=== PATIENT | female | born 1985 | race Caucasian/White ===

== ENCOUNTER 2018-01-02 20:59 | Emergency (ER) | payer SELFPAY ==
[2018-01-02] MEDS ORDERED: Adacel Vial IM ONE ×2 (21:31→21:50)
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
[2018-01-02] MEDS ORDERED: TYLENOL 325 MG PO STA (21:37)
[2018-01-02] MEDS ORDERED: MOTRIN 400 MG PO ONE (21:38)
[2018-01-02] MEDS ORDERED: MOTRIN 400 MG ONE (21:50)
[2018-01-02] MEDS ORDERED: TYLENOL 325 MG ONE (21:50)
[2018-01-02 22:18] VITALS: BP 125/95; PULSE 119
[2018-01-02 23:04] VITALS: O2SAT 100
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
== END 2018-01-02 23:19 | disposition home or self-care (01) ==
LOC: ED 20:59
DX: S00.83XA Contusion of other part of head, initial encounter (principal); S01.511A Laceration without foreign body of lip, initial encounter; Y04.2XXA Assault by strike against or bumped into by another person, initial encounter
CPT/HCPCS: 70450; 70486; 90471; 90715; 99284; A9270-GY

== ENCOUNTER 2018-02-10 11:00 | Emergency (ER) | payer SELFPAY ==
[2018-02-10] MEDS ORDERED: Sodium Chloride 0.9% 1000 ML 1,000 ML IV STA (11:26)
[2018-02-10] MEDS ORDERED: Transderm Scop 1.5MG Patch TOP ONE (11:30)
[2018-02-10] MEDS ORDERED: Sodium Chloride 0.9% 1000 ML 1,000 ML ONE ×3 (11:32→14:10)
[2018-02-10 11:44] LABS: Lactic Acid 7.1 (0.4-2.0)
--- NOTE | 2018-02-10 11:45 | ERPHSYRPT ---
- History of Present Illness Historian: patient Exam Limitations: no limitations Patient Subjective Stated Complaint: vomiting since approx 0500 and has done so approx 30 times Triage Nursing Assessment: Pt c/o of vomiting approx 30 times since 0500, denies abdominal pain and no pain with palpatation, reported getting drunk last night and finished approx 0030 but was never sick, hx of alcoholic pancreatitis , denies any other issues at this time Physician History: Pt is a 32 y/o female, that presented to the ER, secondry to frequent vomiting episodes, since 5:00am. Pt states, could not hold any fluids or food intake. Pt denies abdominal pain or diarrhea. No F/C/S. Pt states, had a few alchoholic drinks yesterday. Last time she smoked pot was a few days ago. Pt denies any other recreational drug use. No SOB or cough, no chest pain. Timing/Duration: today Activities at Onset: none Severity of Pain-Max: none Severity of Pain-Current: none Modifying Factors: Improves With: nothing Associated Symptoms: nausea (Severe vomiting) Allergies/Adverse Reactions: No Known Drug Allergies Allergy (Verified 02/10/18 11:17) Home Medications: No Reportable Medications [No Reported Medications] 02/10/18 [History] Hx Tetanus, Diphtheria Vaccination/Date Given: No Hx Influenza Vaccination/Date Given: No Hx Pneumococcal Vaccination/Date Given: No - Review of Systems Constitutional: Malaise, Weakness Eyes: No Symptoms Ears, Nose, & Throat: No Symptoms Respiratory: No Cough, No Dyspnea Cardiac: Palpitations Abdominal/Gastrointestinal: Nausea, Vomiting Genitourinary Symptoms: Other (Decrease urine output) Musculoskeletal: No Back Pain, No Neck Pain Skin: No Rash Neurological: No Dizziness, No Focal Weakness, No Sensory Changes Psychological: No Symptoms Endocrine: No Symptoms All Other Systems: Reviewed and Negative - Past Medical History Pertinent Past Medical History: Yes Neurological History: No Pertinent History ENT History: No Pertinent History Cardiac History: No Pertinent History Respiratory History: No Pertinent History Endocrine Medical History: Other Musculoskeletal History: Fibromyalgia GI Medical History: No Pertinent History History: No Pertinent History Psycho-Social History: Anxiety, Depression Female Reproductive Disorders: No Pertinent History Other Medical History: alcoholism pancreatitis - Past Surgical History Past Surgical History: Yes Neuro Surgical History: No Pertinent History Cardiac: No Pertinent History Respiratory: No Pertinent History Gastrointestinal: No Pertinent History Genitourinary: No Pertinent History Musculoskeletal: No Pertinent History Female Surgical History: No Pertinent History, Tubal Ligation, Other Other Surgical History: varicose veins, cyst removal - Social History Smoking Status: Current every day smoker How long have you smoked: 15 years Exposure to second hand smoke: Yes Drug Use: marijuana Patient Lives Alone: No - Female History Hx Last Menstrual Period: 01/25/2018 Hx Now: No (tubal) - Nursing Vital Signs Nursing Vital Signs: Initial Vital Signs Temperature 98.3 F 02/10/18 11:04 Pulse Rate 140 H 02/10/18 11:04 Blood Pressure 147/107 02/10/18 11:04 O2 Sat by Pulse Oximetry 97 02/10/18 11:04 Pain Scale Pain Intensity 2 - Physical Exam General Appearance: moderate distress Eye Exam: PERRL/EOMI, eyes nml inspection Ears, Nose, Throat Exam: normal ENT inspection, pharynx normal, moist mucous membranes Neck Exam: normal inspection, non-tender, supple, full range of motion Respiratory Exam: normal breath sounds, lungs clear, No respiratory distress Cardiovascular Exam: tachycardia Gastrointestinal/Abdomen Exam: soft, No tenderness, No mass Back Exam: normal inspection, normal range of motion, No CVA tenderness, No vertebral tenderness Extremity Exam: normal inspection, normal range of motion, pelvis stable Neurologic Exam: alert, oriented x 3, cooperative, normal mood/affect, nml cerebellar function, sensation nml, other (Tremors), No motor deficits Skin Exam: normal color, warm, dry SpO2: 97 Oxygen Delivery: Room Air - Radiology Exams Abdomen X-ray Interpretation: Reviewed by me (Negative KUB) Ordered Tests: Active Orders 24 hr Category Date Time Status Clean Catch Urine Specimen STAT Care 02/10/18 14:56 Active IV Insertion STAT Care 02/10/18 11:26 Active NPO (ED) STAT Care 02/10/18 11:26 Active KUB Stat Exams 02/10/18 11:28 Completed AMYLASE Stat Lab 02/10/18 11:45 Completed BLOOD CULTURE Stat Lab 02/10/18 12:07 Received CBC W DIFF Stat Lab 02/10/18 11:45 Completed CMP Stat Lab 02/10/18 11:45 Completed HCG QUALITATIVE,SERUM Stat Lab 02/10/18 11:45 Completed LIPASE Stat Lab 02/10/18 11:45 Completed Lactic Acid Stat Lab 02/10/18 11:35 Completed Lactic Acid Stat Lab 02/10/18 13:58 Completed Urine Triage Profile Stat Lab 02/10/18 15:00 Completed Medication Summary Generic Name Dose Route Start Last Admin Trade Name Petra PRN Reason Stop Dose Admin Sodium Chloride 1,000 mls @ 999 mls/hr 02/10/18 12:00 02/10/18 16:05 Sodium Chloride 0.9% 1000 Ml IV 02/10/18 15:00 Infused .Q1H1M FRAN Infusion Discontinued Medications Generic Name Dose Route Start Last Admin Trade Name Petra PRN Reason Stop Dose Admin Famotidine 40 mg 02/10/18 13:20 02/10/18 14:26 Pepcid 20 Mg Vial IV 02/10/18 13:21 40 mg STAT ONE Administration Famotidine Confirm 02/10/18 13:55 Pepcid 20 Mg Vial Administered 02/10/18 13:56 Dose 40 mg IV .STK-MED ONE Sodium Chloride 1,000 mls @ 999 mls/hr 02/10/18 11:26 02/10/18 14:27 Sodium Chloride 0.9% 1000 Ml IV 02/10/18 12:26 Infused .Q1H1M STA Infusion Sodium Chloride Confirm 02/10/18 11:32 Sodium Chloride 0.9% 1000 Ml Administered 02/10/18 11:33 Dose 1,000 mls @ ud .ROUTE .STK-MED ONE Sodium Chloride Confirm 02/10/18 11:51 Sodium Chloride 0.9% 1000 Ml Administered 02/10/18 11:52 Dose 1,000 mls @ ud .ROUTE .STK-MED ONE Vancomycin HCl 250 mls @ 167 mls/hr 02/10/18 11:54 02/10/18 12:24 Vancomycin 1gm/ Ns 250ml IV 02/10/18 13:23 167 mls/hr STAT ONE Administration Piperacillin Sod/Tazobactam Sod 3.375 gm in 100 mls @ 200 mls/hr 02/10/18 11: 54 02/10/18 12:36 Zosyn 3.375gm/100 Ml D5w IV 02/10/18 12:23 Infused STAT STA Infusion Piperacillin Sod/Tazobactam Sod Confirm 02/10/18 11:59 Zosyn 3.375gm/100 Ml D5w Administered 02/10/18 12:00 Dose 3.375 gm in 100 mls @ ud IV .STK-MED ONE Vancomycin HCl Confirm 02/10/18 12:23 Vancomycin 1gm/ Ns 250ml Administered 02/10/18 12:24 Dose 250 mls @ ud IV .STK-MED ONE Scopolamine HBr 1.5 mg 02/10/18 11:30 02/10/18 11:49 Transderm Scop 1.5mg Patch TOP 02/10/18 11:31 1.5 mg STAT ONE Administration Lab/Rad Data: Laboratory Result Diagrams 02/10/18 11:45 02/10/18 11:45 Laboratory Results 02/10/18 02/10/18 02/10/18 Range/Units 15:00 13:58 11:45 WBC (4.0-10.5) K/mm3 RBC (4.1-5.4) M/mm3 Hgb (12.0-16.0) gm/dl Hct (35-47) % MCV (78-100) fl MCH (26-32) pg MCHC (32-36) g/dl RDW (11.5-14.0) % Plt Count (150-450) K/mm3 MPV (6-9.5) fl Gran % (36.0-66.0) % Eos # (Auto) (0-0.5) Absolute Lymphs (auto) (1.0-4.6) Absolute Monos (auto) (0.0-1.3) Lymphocytes % (24.0-44.0) % Monocytes % (0.0-12.0) % Eosinophils % (0.00-5.0) % Basophils % (0.0-0.4) % Absolute Granulocytes (1.4-6.9) Basophils # (0-0.4) Sodium (137-145) mmol/L Potassium (3.5-5.1) mmol/L Chloride (98-107) mmol/L Carbon Dioxide (22-30) mmol/L Anion Gap (5-15) MEQ/L BUN (7-17) mg/dL Creatinine (0.52-1.04) mg/dL Estimated GFR ML/MIN Glucose (74-106) mg/dL Lactic Acid 1.6 (0.4-2.0) Calcium (8.4-10.2) mg/dL Total Bilirubin (0.2-1.3) mg/dL AST (14-36) U/L ALT (0-35) U/L Alkaline Phosphatase (38-126) U/L Serum Total Protein (6.3-8.2) g/dL Albumin (3.5-5.0) g/dL Amylase (30-110) U/L Lipase (23-300) U/L Serum , Qual NEGATIVE (Negative) Urine Opiates Level NEGATIVE (NEGATIVE) Ur Methadone NEGATIVE (NEGATIVE) Urine Barbiturates NEGATIVE (NEGATIVE) Ur Phencyclidine (PCP) NEGATIVE (NEGATIVE) Urine Amphetamine NEGATIVE (NEGATIVE) U Benzodiazepine Level NEGATIVE (NEGATIVE) Urine Cocaine NEGATIVE (NEGATIVE) Urine Marijuana (THC) POSITIVE (NEGATIVE) 02/10/18 02/10/18 02/10/18 Range/Units 11:45 11:45 11:35 WBC 11.4 H (4.0-10.5) K/mm3 RBC 4.56 (4.1-5.4) M/mm3 Hgb 15.4 (12.0-16.0) gm/dl Hct 44.1 (35-47) % MCV 96.7 (78-100) fl MCH 33.8 H (26-32) pg MCHC 34.9 (32-36) g/dl RDW 14.1 H (11.5-14.0) % Plt Count 257 (150-450) K/mm3 MPV 9.7 H (6-9.5) fl Gran % 76.1 H (36.0-66.0) % Eos # (Auto) 0.02 (0-0.5) Absolute Lymphs (auto) 1.75 (1.0-4.6) Absolute Monos (auto) 0.88 (0.0-1.3) Lymphocytes % 15.4 L (24.0-44.0) % Monocytes % 7.7 (0.0-12.0) % Eosinophils % 0.2 (0.00-5.0) % Basophils % 0.6 (0.0-0.4) % Absolute Granulocytes 8.68 H (1.4-6.9) Basophils # 0.07 (0-0.4) Sodium 137 (137-145) mmol/L Potassium 3.3 L (3.5-5.1) mmol/L Chloride 97 L (98-107) mmol/L Carbon Dioxide 17 L (22-30) mmol/L Anion Gap 26.1 H (5-15) MEQ/L BUN 8 (7-17) mg/dL Creatinine 0.71 (0.52-1.04) mg/dL Estimated GFR > 60.0 ML/MIN Glucose 95 (74-106) mg/dL Lactic Acid 7.1 H (0.4-2.0) Calcium 9.8 (8.4-10.2) mg/dL Total Bilirubin 1.30 (0.2-1.3) mg/dL AST 77 H (14-36) U/L ALT 56 H (0-35) U/L Alkaline Phosphatase 85 (38-126) U/L Serum Total Protein 8.1 (6.3-8.2) g/dL Albumin 5.1 H (3.5-5.0) g/dL Amylase 92 (30-110) U/L Lipase 82 (23-300) U/L Serum , Qual (Negative) Urine Opiates Level (NEGATIVE) Ur Methadone (NEGATIVE) Urine Barbiturates (NEGATIVE) Ur Phencyclidine (PCP) (NEGATIVE) Urine Amphetamine (NEGATIVE) U Benzodiazepine Level (NEGATIVE) Urine Cocaine (NEGATIVE) Urine Marijuana (THC) (NEGATIVE) - Progress Progress: improved Progress Note: 02/10/18 16:44 Pt was given 3 lit of IVF, and ABX, Zosyn and Azithromycin was given, secondary to elevated Lactic acid. Repeat lactate was 1.6, and pt felt much better. She was able to have a bottle of water, and applesauce with no vomiting. Pt was educated about cyclic vomiting syndrome, and she was cleared for d/c. I explained to the pt that she should stop smoking pot and drinking ETOH, secondaary to the effect those have on her. Pt should f/u with her PCP. Will see patient in: office Counseled pt/family regarding: drug and/or alcohol abuse, lab results, diagnosis - Departure Time of Disposition: 16:49 Departure Disposition: Home Clinical Impression: Cyclic vomiting syndrome Condition: Stable Critical Care Time: No Referrals: DOCTOR,NO FAMILY [Primary Care Provider] -
[2018-02-10 11:47] LABS: BASOPHIL % 0.6 % (0.0-0.4); Basophil (Absolute #) 0.07 (0-0.4); Eosinophil % 0.2 % (0.00-5.0); Eosinophil (Absolute #) 0.02 (0-0.5); Granulocyte Absolute (ANC) 8.68 (1.4-6.9); Granulocytes % 76.1 % (36.0-66.0); Hematocrit 44.1 % (35-47); Hemoglobin 15.4 gm/dl (12.0-16.0); Lymphocyte (Absolute #) 1.75 (1.0-4.6); Lymphocytes % 15.4 % (24.0-44.0); Mean Cell Volume 96.7 fl (78-100); Mean Corpuscular Hemoglobin 33.8 pg (26-32); Mean Corpuscular Hgb Concent. 34.9 g/dl (32-36); Mean Platelet Volume 9.7 fl (6-9.5); Monocyte (Absolute #) 0.88 (0.0-1.3); Monocytes % 7.7 % (0.0-12.0); Platelet Count 257 K/mm3 (150-450); Red Blood Count 4.56 M/mm3 (4.1-5.4); Red Cell Distribution Width 14.1 % (11.5-14.0); White Blood Count 11.4 K/mm3 (4.0-10.5)
[2018-02-10] MEDS ORDERED: Sodium Chloride 0.9% 1000 ML 0 ML ONE (11:51)
[2018-02-10] MEDS ORDERED: Vancomycin 1GM/ Ns 250ML*** 250 ML IV ONE ×2 (11:54→12:23)
[2018-02-10] MEDS ORDERED: Zosyn 3.375GM/100 Ml D5W 3.375 GM/100 ML IVPB IV STA (11:54)
[2018-02-10] MEDS ORDERED: Zosyn 3.375GM/100 Ml D5W 3.375 GM/100 ML IVPB IV ONE (11:59)
[2018-02-10 12:06] LABS: ALBUMIN 5.1 g/dL (3.5-5.0); ALKALINE PHOSPHATASE 85 U/L (38-126); AMYLASE 92 U/L (30-110); ANION GAP 26.1 MEQ/L (5-15); BLOOD UREA NITROGEN 8 mg/dL (7-17); CHLORIDE 97 mmol/L (98-107); Calcium 9.8 mg/dL (8.4-10.2); Carbon Dioxide 17 mmol/L (22-30); Creatinine 1 0.71 mg/dL (0.52-1.04); Glucose 95 mg/dL (74-106); LIPASE 82 U/L (23-300); Potassium 3.3 mmol/L (3.5-5.1); SGOT/AST 77 U/L (14-36); SGPT/ALT 56 U/L (0-35); SODIUM 137 mmol/L (137-145); Total Protein 8.1 g/dL (6.3-8.2)
--- NOTE | 2018-02-10 12:12 | XRAY ---
Indication: Vomiting. Comparison: None KUB nonacute and nonobstructed. A few bilateral pelvic phleboliths. Solid organs unremarkable. Osseous structures intact with mild scoliosis. Lung bases clear. Impression: Negative KUB.
[2018-02-10] MEDS: Sodium Chloride 0.9% 1000 ML 1,000 ML IV SCH ×2 (12:24→14:19)
[2018-02-10] MEDS ORDERED: Pepcid 20 MG VIAL IV ONE ×2 (13:20→13:55)
[2018-02-10 15:26] LABS: Amphetamine,Urine NEGATIVE (NEGATIVE); Barbiturate,Urine NEGATIVE (NEGATIVE); Benzodiazepine,Urine NEGATIVE (NEGATIVE); Cocaine,Urine NEGATIVE (NEGATIVE); Methadone,Urine NEGATIVE (NEGATIVE); Opiate,Urine NEGATIVE (NEGATIVE); PCP,Urine NEGATIVE (NEGATIVE); THC,Urine POSITIVE (NEGATIVE)
[2018-02-10 16:27] VITALS: BP 125/94; PULSE 102
[2018-02-10 16:40] VITALS: O2SAT 97
== END 2018-02-10 17:01 | disposition home or self-care (01) ==
LOC: ED 11:00
DX: G43.A0 Cyclical vomiting, in migraine, not intractable (principal); R53.1 Weakness; M79.7 Fibromyalgia; F41.9 Anxiety disorder, unspecified; F32.9 Major depressive disorder, single episode, unspecified; K86.0 Alcohol-induced chronic pancreatitis
CPT/HCPCS: 36000; 36415; 74018; 80053; 80307; 81025; 82150; 83605; 83690; 85025; 87040; 96360; 96361; 96365; 96367; 96374; 96375; 99285; J2543; J3370; A9270-GY

== ENCOUNTER 2018-07-18 21:08 | Emergency (ER) | payer MEDICAID ==
[2018-07-18 22:28] VITALS: BP 148/99; O2SAT 98
[2018-07-18] MEDS ORDERED: Zofran 4 MG/2 ML VIAL IV ONE (22:35)
[2018-07-18] MEDS ORDERED: Sodium Chloride 0.9% 1000 ML 1,000 ML IV STA (22:35)
[2018-07-18] MEDS ORDERED: Ativan 2 MG/1 ML VIAL IV ONE (22:37)
--- NOTE | 2018-07-18 22:42 | ERPHSYRPT ---
- History of Present Illness Time Seen by Provider: 07/18/18 22:28 Historian: patient Exam Limitations: no limitations Patient Subjective Stated Complaint: pt reports vomiting, dizziness and panic attack x2 today. pt reports being sober for 3 months and the last week had a relapse and has been binge drinking. pt reports on average having 4-5 drinks daily but sometimes will have a lot more. pt reports drinking a couple whiskey drinks today. pt states that she cannot keep anything down, reports that she lost count after vomiting approx 10 times today. states she also got really hot at one point and starting sweating, then reports having a panic attack after that episode. pt also reports abd pain that is intermittent in nature. Triage Nursing Assessment: pt is aox3, pupils perrl, afebrile, resps easy and non labored, radial pulses strong and equal, pt tachycardic, pt abd soft non tender, bowel sounds present and hyperactive x 4 quadrants, pt skin pale warm dry. cap refill < 3 seconds. Physician History: Pt states, she stopped drinking alcohol 2 months ago. She had another binge in the last few days, started vomiting this morning, denies abdominal pain, only cramps when vomiting, but denies chest pain, SOB, cough, fever, chills, vomiting blood or coffee ground material, she has diarrhea, but no black or bloody stool. She also mentioned a sty on her right lower eyelid for 2 weeks. Timing/Duration: today Activities at Onset: none Quality: cramping Abdominal Pain Onset Location: generalized abdomen Severity of Pain-Max: severe Severity of Pain-Current: none Modifying Factors: Improves With: nothing Associated Symptoms: diarrhea, nausea, vomiting Previous symptoms: same symptoms as today Allergies/Adverse Reactions: No Known Drug Allergies Allergy (Verified 07/18/18 22:35) Hx Tetanus, Diphtheria Vaccination/Date Given: Yes Hx Influenza Vaccination/Date Given: No Hx Pneumococcal Vaccination/Date Given: No Immunizations Up to Date: Yes - Review of Systems Constitutional: No Symptoms Ears, Nose, & Throat: No Symptoms Respiratory: No Symptoms Cardiac: No Symptoms Abdominal/Gastrointestinal: No Symptoms, Nausea, Vomiting, Diarrhea Genitourinary Symptoms: No Symptoms Musculoskeletal: No Symptoms Skin: No Symptoms Neurological: No Symptoms All Other Systems: Reviewed and Negative - Past Medical History Pertinent Past Medical History: Yes Neurological History: No Pertinent History ENT History: No Pertinent History Cardiac History: No Pertinent History Respiratory History: No Pertinent History Endocrine Medical History: Other Musculoskeletal History: Fibromyalgia GI Medical History: No Pertinent History, Pancreatitis History: No Pertinent History Psycho-Social History: Anxiety, Depression Female Reproductive Disorders: No Pertinent History Other Medical History: alcoholism pancreatitis - Past Surgical History Past Surgical History: Yes Neuro Surgical History: No Pertinent History Cardiac: No Pertinent History Respiratory: No Pertinent History Gastrointestinal: No Pertinent History Genitourinary: No Pertinent History Musculoskeletal: No Pertinent History Female Surgical History: No Pertinent History, Tubal Ligation, Other Other Surgical History: varicose veins, cyst removal - Social History Smoking Status: Current every day smoker How long have you smoked: 15 years Exposure to second hand smoke: Yes Drug Use: marijuana Patient Lives Alone: No - Female History Hx Last Menstrual Period: 06/11/18 Hx Now: No - Nursing Vital Signs Nursing Vital Signs: Initial Vital Signs Temperature 97.9 F 07/18/18 22:13 Pulse Rate 110 H 07/18/18 22:13 Respiratory Rate 20 07/18/18 22:13 Blood Pressure 148/99 07/18/18 22:13 O2 Sat by Pulse Oximetry 98 07/18/18 22:13 Pain Scale Pain Intensity 5 - Physical Exam General Appearance: no apparent distress Eye Exam: PERRL/EOMI, other (right eye: small hordeolum in the mid lower eyelid , no conjunctival erythema or discharge, cornea is intact) Ears, Nose, Throat Exam: normal ENT inspection, moist mucous membranes Neck Exam: normal inspection, non-tender, supple, No JVD Respiratory Exam: normal breath sounds, lungs clear, airway intact Cardiovascular Exam: regular rate/rhythm, normal heart sounds, normal peripheral pulses, capillary refill <2 sec, No murmur Gastrointestinal/Abdomen Exam: soft, normal bowel sounds, No tenderness, No distention, No mass, No guarding, No rebound, No hernia, No organomegaly Back Exam: normal inspection, No CVA tenderness, No vertebral tenderness Extremity Exam: normal inspection Neurologic Exam: alert, oriented x 3, cooperative, normal mood/affect Skin Exam: normal color, warm, dry, No rash, No petechiae Lymphatic Exam: No adenopathy SpO2 Interpretation: normal SpO2: 98 O2 Delivery: Room Air - Course Nursing assessment & vital signs reviewed: Yes Ordered Tests: Active Orders 24 hr Category Date Time Status IV Insertion STAT Care 07/18/18 22:35 Active Alcohol [ETHYL ALCOHOL] Stat Lab 07/18/18 23:01 Completed CBC W DIFF Stat Lab 07/18/18 23:01 Completed CMP Stat Lab 07/18/18 23:01 Completed HCG,QUALITATIVE URINE Stat Lab 07/18/18 22:50 Completed LIPASE Stat Lab 07/18/18 23:01 Completed UA W/RFX UR CULTURE Stat Lab 07/18/18 22:50 Completed Urine Triage Profile Stat Lab 07/18/18 22:50 Completed Medication Summary Discontinued Medications Generic Name Dose Route Start Last Admin Trade Name Dannq PRN Reason Stop Dose Admin Sodium Chloride 1,000 mls @ 999 mls/hr 07/18/18 22:35 07/18/18 23:02 Sodium Chloride 0.9% 1000 Ml IV 07/18/18 23:35 999 mls/hr .Q1H1M STA Administration Sodium Chloride Confirm 07/18/18 22:49 Sodium Chloride 0.9% 1000 Ml Administered 07/18/18 22:50 Dose 1,000 mls @ ud .ROUTE .STK-MED ONE Lorazepam 1 mg 07/18/18 22:37 07/18/18 23:02 Ativan 2 Mg/1 Ml Vial IV 07/18/18 22:38 1 mg STAT ONE Administration Lorazepam Confirm 07/18/18 22:48 Ativan 2 Mg/1 Ml Vial Administered 07/18/18 22:49 Dose 2 mg .ROUTE .STK-MED ONE Ondansetron HCl 4 mg 07/18/18 22:35 07/18/18 23:02 Zofran 4 Mg/2 Ml Vial IV 07/18/18 22:36 4 mg STAT ONE Administration Ondansetron HCl Confirm 07/18/18 22:48 Zofran 4 Mg/2 Ml Vial Administered 07/18/18 22:49 Dose 4 mg .ROUTE .STK-MED ONE Lab/Rad Data: Laboratory Result Diagrams 07/18/18 23:01 07/18/18 23:01 Laboratory Results 07/18/18 07/18/18 07/18/18 Range/Units 23:01 23:01 23:01 WBC 11.4 H (4.0-10.5) K/mm3 RBC 4.31 (4.1-5.4) M/mm3 Hgb 13.3 (12.0-16.0) gm/dl Hct 38.8 (35-47) % MCV 90.0 (78-100) fl MCH 30.9 (26-32) pg MCHC 34.3 (32-36) g/dl RDW 13.2 (11.5-14.0) % Plt Count 255 (150-450) K/mm3 MPV 9.5 (6-9.5) fl Gran % 79.2 H (36.0-66.0) % Eos # (Auto) 0.01 (0-0.5) Absolute Lymphs (auto) 1.71 (1.0-4.6) Absolute Monos (auto) 0.61 (0.0-1.3) Lymphocytes % 15.0 L (24.0-44.0) % Monocytes % 5.4 (0.0-12.0) % Eosinophils % 0.1 (0.00-5.0) % Basophils % 0.3 (0.0-0.4) % Absolute Granulocytes 9.02 H (1.4-6.9) Basophils # 0.03 (0-0.4) Sodium 136 L (137-145) mmol/L Potassium 4.0 (3.5-5.1) mmol/L Chloride 100 (98-107) mmol/L Carbon Dioxide 21 L (22-30) mmol/L Anion Gap 20.1 H (5-15) MEQ/L BUN 5 L (7-17) mg/dL Creatinine 0.57 (0.52-1.04) mg/dL Estimated GFR > 60.0 ML/MIN Glucose 88 (74-106) mg/dL Calcium 9.9 (8.4-10.2) mg/dL Total Bilirubin 1.00 (0.2-1.3) mg/dL AST 95 H (14-36) U/L ALT 80 H (0-35) U/L Alkaline Phosphatase 75 (38-126) U/L Serum Total Protein 7.7 (6.3-8.2) g/dL Albumin 4.7 (3.5-5.0) g/dL Lipase 36 (23-300) U/L Urine Color (YELLOW) Urine Appearance (CLEAR) Urine pH (5-6) Ur Specific [place] (1.005-1.025) Urine Protein (Negative) Urine Ketones (NEGATIVE) Urine Blood (0-5) Lexa/ul Urine Nitrite (NEGATIVE) Urine Bilirubin (NEGATIVE) Urine Urobilinogen (0-1) mg/dL Ur Leukocyte Esterase (NEGATIVE) Urine WBC (Auto) (0-5) /HPF Urine RBC (Auto) (0-2) /HPF U Epithel Cells (Auto) (FEW) /HPF Urine Bacteria (Auto) (NEGATIVE) /HPF Urine Mucus (Auto) (NEGATIVE) /HPF Urine Culture Reflexed (NO) Urine Glucose (NEGATIVE) mg/dL Urine HCG, Qual (Negative) Urine Opiates Level (NEGATIVE) Ur Methadone (NEGATIVE) Urine Barbiturates (NEGATIVE) Ur Phencyclidine (PCP) (NEGATIVE) Urine Amphetamine (NEGATIVE) U Benzodiazepine Level (NEGATIVE) Urine Cocaine (NEGATIVE) Urine Marijuana (THC) (NEGATIVE) Ethyl Alcohol < 10 (0-10) mg/dL 07/18/18 07/18/18 07/18/18 Range/Units 22:50 22:50 22:50 WBC (4.0-10.5) K/mm3 RBC (4.1-5.4) M/mm3 Hgb (12.0-16.0) gm/dl Hct (35-47) % MCV (78-100) fl MCH (26-32) pg MCHC (32-36) g/dl RDW (11.5-14.0) % Plt Count (150-450) K/mm3 MPV (6-9.5) fl Gran % (36.0-66.0) % Eos # (Auto) (0-0.5) Absolute Lymphs (auto) (1.0-4.6) Absolute Monos (auto) (0.0-1.3) Lymphocytes % (24.0-44.0) % Monocytes % (0.0-12.0) % Eosinophils % (0.00-5.0) % Basophils % (0.0-0.4) % Absolute Granulocytes (1.4-6.9) Basophils # (0-0.4) Sodium (137-145) mmol/L Potassium (3.5-5.1) mmol/L Chloride (98-107) mmol/L Carbon Dioxide (22-30) mmol/L Anion Gap (5-15) MEQ/L BUN (7-17) mg/dL Creatinine (0.52-1.04) mg/dL Estimated GFR ML/MIN Glucose (74-106) mg/dL Calcium (8.4-10.2) mg/dL Total Bilirubin (0.2-1.3) mg/dL AST (14-36) U/L ALT (0-35) U/L Alkaline Phosphatase (38-126) U/L Serum Total Protein (6.3-8.2) g/dL Albumin (3.5-5.0) g/dL Lipase (23-300) U/L Urine Color YELLOW (YELLOW) Urine Appearance SLIGHTLY CLOUDY (CLEAR) Urine pH 6.0 (5-6) Ur Specific [place] 1.010 (1.005-1.025) Urine Protein NEGATIVE (Negative) Urine Ketones NEGATIVE (NEGATIVE) Urine Blood NEGATIVE (0-5) Lexa/ul Urine Nitrite NEGATIVE (NEGATIVE) Urine Bilirubin NEGATIVE (NEGATIVE) Urine Urobilinogen 2 (0-1) mg/dL Ur Leukocyte Esterase NEGATIVE (NEGATIVE) Urine WBC (Auto) 0-2 (0-5) /HPF Urine RBC (Auto) NONE (0-2) /HPF U Epithel Cells (Auto) RARE (FEW) /HPF Urine Bacteria (Auto) NONE SEEN (NEGATIVE) /HPF Urine Mucus (Auto) SLIGHT (NEGATIVE) /HPF Urine Culture Reflexed NO (NO) Urine Glucose NEGATIVE (NEGATIVE) mg/dL Urine HCG, Qual NEGATIVE (Negative) Urine Opiates Level NEGATIVE (NEGATIVE) Ur Methadone NEGATIVE (NEGATIVE) Urine Barbiturates NEGATIVE (NEGATIVE) Ur Phencyclidine (PCP) NEGATIVE (NEGATIVE) Urine Amphetamine NEGATIVE (NEGATIVE) U Benzodiazepine Level NEGATIVE (NEGATIVE) Urine Cocaine NEGATIVE (NEGATIVE) Urine Marijuana (THC) NEGATIVE (NEGATIVE) Ethyl Alcohol (0-10) mg/dL - Progress Progress: improved Progress Note: 07/18/18 23:57 Pt states, she feels much better, did not vomit, she was given Gentamycin ointment to her sty, and discharged on Librium and Zofran ODT, to rest x 3 days , drink plenty of fluids, and follow up with your physician in 2-3 days, return if severe vomiting, pain, fever> 102 F! Counseled pt/family regarding: lab results, diagnosis, need for follow-up - Departure Departure Disposition: Home Clinical Impression: Alcohol withdrawal Qualifiers: Complication of substance-induced condition: uncomplicated Qualified Code(s): F10.230 - Alcohol dependence with withdrawal, uncomplicated Sty, internal Qualifiers: Laterality: right Eyelid: lower Qualified Code(s): H00.022 - Hordeolum internum right lower eyelid Condition: Stable Critical Care Time: No Referrals: DOCTOR,NO FAMILY [Primary Care Provider] - Additional Instructions: Rest x 2-3 days, drink plenty of fluids, and follow up with your physician in 2- 3 days, return if severe pain, vomiting, fever> 102 F! Prescriptions: Ondansetron ODT 4 MG [Zofran Odt 4 mg] 4 mg PO Q6H PRN PRN #10 tab.rapdis PRN Reason: Nausea/Vomiting Chlordiazepoxide HCl 25 mg [Librium 25 mg] 25 mg PO TID #30 capsule Gentamicin Sulfate 3.5 gm [Gentak 3.5GM Opthalmic Oint] 0.5 gm OP TID #1 tube
[2018-07-18] MEDS ORDERED: Ativan 2 MG/1 ML VIAL ONE (22:48)
[2018-07-18] MEDS ORDERED: Zofran 4 MG/2 ML VIAL ONE (22:48)
[2018-07-18] MEDS ORDERED: Sodium Chloride 0.9% 1000 ML 1,000 ML ONE (22:49)
[2018-07-18 22:57] LABS: Appearance SLIGHTLY CLOUDY (CLEAR); Bilirubin NEGATIVE (NEGATIVE); Blood NEGATIVE Ery/ul (0-5); Epithelial Cells RARE /HPF (FEW); Glucose NEGATIVE (NEGATIVE); Ketones NEGATIVE (NEGATIVE); Leukocyte Esterase NEGATIVE (NEGATIVE); Mucus SLIGHT /HPF (NEGATIVE); Nitrite NEGATIVE (NEGATIVE); Protein,Urine Dip NEGATIVE (Negative); Urobilinogen 2 mg/dL (0-1); WBC 0-2 /HPF (0-5)
[2018-07-18 23:03] LABS: Bacteria NONE SEEN /HPF (NEGATIVE)
[2018-07-18 23:06] LABS: BASOPHIL % 0.3 % (0.0-0.4); Basophil (Absolute #) 0.03 (0-0.4); Eosinophil % 0.1 % (0.00-5.0); Eosinophil (Absolute #) 0.01 (0-0.5); Granulocyte Absolute (ANC) 9.02 (1.4-6.9); Granulocytes % 79.2 % (36.0-66.0); Hematocrit 38.8 % (35-47); Hemoglobin 13.3 gm/dl (12.0-16.0); Lymphocyte (Absolute #) 1.71 (1.0-4.6); Mean Corpuscular Hemoglobin 30.9 pg (26-32); Mean Corpuscular Hgb Concent. 34.3 g/dl (32-36); Mean Platelet Volume 9.5 fl (6-9.5); Monocyte (Absolute #) 0.61 (0.0-1.3); Monocytes % 5.4 % (0.0-12.0); Platelet Count 255 K/mm3 (150-450); Red Blood Count 4.31 M/mm3 (4.1-5.4); Red Cell Distribution Width 13.2 % (11.5-14.0); White Blood Count 11.4 K/mm3 (4.0-10.5)
[2018-07-18 23:10] LABS: Amphetamine,Urine NEGATIVE (NEGATIVE); Barbiturate,Urine NEGATIVE (NEGATIVE); Benzodiazepine,Urine NEGATIVE (NEGATIVE); Cocaine,Urine NEGATIVE (NEGATIVE); Methadone,Urine NEGATIVE (NEGATIVE); Opiate,Urine NEGATIVE (NEGATIVE); PCP,Urine NEGATIVE (NEGATIVE); THC,Urine NEGATIVE (NEGATIVE)
[2018-07-18 23:27] LABS: ALBUMIN 4.7 g/dL (3.5-5.0); ALKALINE PHOSPHATASE 75 U/L (38-126); ANION GAP 20.1 MEQ/L (5-15); BLOOD UREA NITROGEN 5 mg/dL (7-17); CHLORIDE 100 mmol/L (98-107); Calcium 9.9 mg/dL (8.4-10.2); Carbon Dioxide 21 mmol/L (22-30); Creatinine 1 0.57 mg/dL (0.52-1.04); Glucose 88 mg/dL (74-106); LIPASE 36 U/L (23-300); SGOT/AST 95 U/L (14-36); SGPT/ALT 80 U/L (0-35); SODIUM 136 mmol/L (137-145); Total Protein 7.7 g/dL (6.3-8.2)
[2018-07-18] MEDS ORDERED: ZOFRAN ODT 4 MG PO PRN (23:56)
[2018-07-19] MEDS ORDERED: ZOFRAN ODT 4 MG ONE (00:15)
[2018-07-19 01:07] VITALS: PULSE 84
[2018-07-19] MEDS ORDERED: GARAMYCIN TOP SCH (10:00)
== END 2018-07-19 01:09 | disposition home or self-care (01) ==
LOC: ED 21:08
DX: F10.230 Alcohol dependence with withdrawal, uncomplicated (principal); H00.022 Hordeolum internum right lower eyelid; R42 Dizziness and giddiness; M79.7 Fibromyalgia; F41.9 Anxiety disorder, unspecified; F32.9 Major depressive disorder, single episode, unspecified
CPT/HCPCS: 36000; 36415; 80053; 80307; 81001; 83690; 84703; 85025; 96360; 96374; 96375; 99284; J2060; J2405; Q0162; A9270-GY; G0480

== ENCOUNTER 2018-08-19 08:23 | Emergency (ER) | payer MEDICAID ==
[2018-08-19] MEDS ORDERED: Sodium Chloride 0.9% 1000 ML 1,000 ML IV STA ×2 (08:37→09:18)
[2018-08-19] MEDS ORDERED: Zofran 4 MG/2 ML VIAL IV ONE (08:37)
--- NOTE | 2018-08-19 08:37 | ERPHSYRPT ---
- History of Present Illness Time Seen by Provider: 08/19/18 08:37 Source: patient, family Exam Limitations: no limitations Physician History: 33 y/o white female admits she is an alcoholic and had been drinking quite a bit last pm and this am. she has been vomiting and cannot hold any fluids down. she is not seeking admission only ivf and antiemetics. she will seek help as an outpt. Timing/Duration: hour(s) (last 12 to 16 hours) Severity: moderate Associated Symptoms: nausea, vomiting, loss of appetite, No abdominal pain Allergies/Adverse Reactions: No Known Drug Allergies Allergy (Verified 08/19/18 08:37) Hx Tetanus, Diphtheria Vaccination/Date Given: Yes Hx Influenza Vaccination/Date Given: No Hx Pneumococcal Vaccination/Date Given: No - Review of Systems Constitutional: Weakness Eyes: No Symptoms Ears, Nose, & Throat: No Symptoms Respiratory: No Symptoms Cardiac: No Symptoms Abdominal/Gastrointestinal: Nausea, Vomiting Genitourinary Symptoms: No Symptoms Musculoskeletal: No Symptoms Skin: No Symptoms Neurological: No Symptoms Psychological: No Symptoms Endocrine: No Symptoms Hematologic/Lymphatic: No Symptoms Immunological/Allergic: No Symptoms All Other Systems: Reviewed and Negative - Past Medical History Pertinent Past Medical History: Yes Neurological History: No Pertinent History ENT History: No Pertinent History Cardiac History: No Pertinent History Respiratory History: No Pertinent History Endocrine Medical History: Other Musculoskeletal History: Fibromyalgia GI Medical History: No Pertinent History, Pancreatitis History: No Pertinent History Psycho-Social History: Anxiety, Depression Female Reproductive Disorders: No Pertinent History Other Medical History: alcoholism pancreatitis - Past Surgical History Past Surgical History: Yes Neuro Surgical History: No Pertinent History Cardiac: No Pertinent History Respiratory: No Pertinent History Gastrointestinal: No Pertinent History Genitourinary: No Pertinent History Musculoskeletal: No Pertinent History Female Surgical History: No Pertinent History, Tubal Ligation, Other Other Surgical History: varicose veins, cyst removal - Social History Smoking Status: Current every day smoker How long have you smoked: 15 years Exposure to second hand smoke: Yes Drug Use: marijuana Patient Lives Alone: No - Nursing Vital Signs Nursing Vital Signs: Initial Vital Signs Temperature 98.0 F 08/19/18 08:27 Pulse Rate 122 H 08/19/18 08:27 Blood Pressure 139/89 08/19/18 08:27 O2 Sat by Pulse Oximetry 98 08/19/18 08:27 Pain Scale Pain Intensity 5 - Physical Exam General Appearance: mild distress, alert, anxiety Eye Exam: PERRL/EOMI, eyes nml inspection Ears, Nose, Throat Exam: normal ENT inspection, moist mucous membranes Neck Exam: normal inspection, non-tender, supple, full range of motion Respiratory Exam: normal breath sounds, lungs clear, airway intact, No chest tenderness, No respiratory distress Cardiovascular Exam: regular rate/rhythm, normal heart sounds, normal peripheral pulses Gastrointestinal/Abdomen Exam: soft, normal bowel sounds, No tenderness, No guarding, No rebound Pelvic Exam: not done Rectal Exam: not done Back Exam: normal inspection, normal range of motion, vertebral tenderness, No CVA tenderness Extremity Exam: normal inspection, normal range of motion, pelvis stable Neurologic Exam: alert, oriented x 3, 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, 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 Skin Exam: normal color, warm, dry Lymphatic Exam: No adenopathy SpO2 Interpretation: normal O2 Delivery: Room Air - Course Nursing assessment & vital signs reviewed: Yes Ordered Tests: Active Orders 24 hr Category Date Time Status Clean Catch Urine Specimen STAT Care 08/19/18 08:37 Active IV Insertion STAT Care 08/19/18 08:37 Active AMYLASE Stat Lab 08/19/18 08:40 Completed CBC W DIFF Stat Lab 08/19/18 08:40 Completed CMP Stat Lab 08/19/18 08:40 Completed CULTURE,URINE Stat Lab 08/19/18 08:45 Received ETHYL ALCOHOL Stat Lab 08/19/18 08:40 Completed LIPASE Stat Lab 08/19/18 08:40 Completed MAGNESIUM Stat Lab 08/19/18 08:40 Completed UA W/RFX UR CULTURE Stat Lab 08/19/18 08:45 Completed Urine Triage Profile Stat Lab 08/19/18 08:45 Completed Medication Summary Generic Name Dose Route Start Last Admin Trade Name Freq PRN Reason Stop Dose Admin Sodium Chloride 1,000 mls @ 999 mls/hr 08/19/18 08:37 08/19/18 08:50 Sodium Chloride 0.9% 1000 Ml IV 08/19/18 09:37 999 mls/hr .Q1H1M STA Administration Ceftriaxone Sodium/Dextrose 1 g in 50 mls @ 100 mls/hr 08/19/18 09:18 Rocephin 1 Gm-D5w 50 Ml Bag IV 08/19/18 09:47 STAT STA Sodium Chloride 1,000 mls @ 999 mls/hr 08/19/18 09:18 Sodium Chloride 0.9% 1000 Ml IV 08/19/18 10:18 .Q1H1M STA Discontinued Medications Generic Name Dose Route Start Last Admin Trade Name Petra PRN Reason Stop Dose Admin Sodium Chloride Confirm 08/19/18 08:44 Sodium Chloride 0.9% 1000 Ml Administered 08/19/18 08:45 Dose 1,000 mls @ ud .ROUTE .STK-MED ONE Ondansetron HCl 4 mg 08/19/18 08:37 08/19/18 08:49 Zofran 4 Mg/2 Ml Vial IV 08/19/18 08:38 4 mg STAT ONE Administration Ondansetron HCl Confirm 08/19/18 08:44 Zofran 4 Mg/2 Ml Vial Administered 08/19/18 08:45 Dose 4 mg .ROUTE .STK-MED ONE Promethazine HCl 25 mg 08/19/18 08:45 08/19/18 08:49 Phenergan 25 Mg Inj IM 08/19/18 08:46 25 mg STAT ONE Administration Promethazine HCl Confirm 08/19/18 08:47 Phenergan 25 Mg Inj Administered 08/19/18 08:48 Dose 25 mg .ROUTE .STK-MED ONE Lab/Rad Data: Laboratory Result Diagrams 08/19/18 08:40 08/19/18 08:40 Laboratory Results 08/19/18 08/19/18 08/19/18 Range/Units 08:45 08:45 08:40 WBC (4.0-10.5) K/mm3 RBC (4.1-5.4) M/mm3 Hgb (12.0-16.0) gm/dl Hct (35-47) % MCV (78-100) fl MCH (26-32) pg MCHC (32-36) g/dl RDW (11.5-14.0) % Plt Count (150-450) K/mm3 MPV (6-9.5) fl Gran % (36.0-66.0) % Eos # (Auto) (0-0.5) Absolute Lymphs (auto) (1.0-4.6) Absolute Monos (auto) (0.0-1.3) Lymphocytes % (24.0-44.0) % Monocytes % (0.0-12.0) % Eosinophils % (0.00-5.0) % Basophils % (0.0-0.4) % Absolute Granulocytes (1.4-6.9) Basophils # (0-0.4) Sodium 139 (137-145) mmol/L Potassium 3.5 (3.5-5.1) mmol/L Chloride 101 (98-107) mmol/L Carbon Dioxide 19 L (22-30) mmol/L Anion Gap 23.0 H (5-15) MEQ/L BUN 8 (7-17) mg/dL Creatinine 0.68 (0.52-1.04) mg/dL Estimated GFR > 60.0 ML/MIN Glucose 88 (74-106) mg/dL Calcium 9.8 (8.4-10.2) mg/dL Magnesium 1.8 (1.6-2.3) mg/dL Total Bilirubin 0.80 (0.2-1.3) mg/dL AST 57 H (14-36) U/L ALT 35 (0-35) U/L Alkaline Phosphatase 85 (38-126) U/L Serum Total Protein 8.5 H (6.3-8.2) g/dL Albumin 4.9 (3.5-5.0) g/dL Amylase 108 (30-110) U/L Lipase 55 (23-300) U/L Urine Color [place] (YELLOW) Urine Appearance CLOUDY (CLEAR) Urine pH 6.0 (5-6) Ur Specific [place] 1.028 (1.005-1.025) Urine Protein 100 (Negative) Urine Ketones TRACE (NEGATIVE) Urine Blood LARGE (0-5) Lexa/ul Urine Nitrite NEGATIVE (NEGATIVE) Urine Bilirubin NEGATIVE (NEGATIVE) Urine Urobilinogen 4 (0-1) mg/dL Ur Leukocyte Esterase MODERATE (NEGATIVE) Urine WBC (Auto) 26-50 (0-5) /HPF Urine RBC (Auto) >101 (0-2) /HPF U Epithel Cells (Auto) RARE (FEW) /HPF Urine Bacteria (Auto) FEW (NEGATIVE) /HPF Urine Mucus (Auto) SLIGHT (NEGATIVE) /HPF Urine Culture Reflexed YES (NO) Urine Glucose NEGATIVE (NEGATIVE) mg/dL Urine Opiates Level NEGATIVE (NEGATIVE) Ur Methadone NEGATIVE (NEGATIVE) Urine Barbiturates NEGATIVE (NEGATIVE) Ur Phencyclidine (PCP) NEGATIVE (NEGATIVE) Urine Amphetamine NEGATIVE (NEGATIVE) U Benzodiazepine Level POSITIVE (NEGATIVE) Urine Cocaine NEGATIVE (NEGATIVE) Urine Marijuana (THC) POSITIVE (NEGATIVE) Ethyl Alcohol 38 H (0-10) mg/dL 08/19/18 Range/Units 08:40 WBC 11.5 H (4.0-10.5) K/mm3 RBC 4.50 (4.1-5.4) M/mm3 Hgb 13.8 (12.0-16.0) gm/dl Hct 40.2 (35-47) % MCV 89.3 (78-100) fl MCH 30.7 (26-32) pg MCHC 34.3 (32-36) g/dl RDW 14.5 H (11.5-14.0) % Plt Count 269 (150-450) K/mm3 MPV 9.5 (6-9.5) fl Gran % 72.3 H (36.0-66.0) % Eos # (Auto) 0.02 (0-0.5) Absolute Lymphs (auto) 2.51 (1.0-4.6) Absolute Monos (auto) 0.62 (0.0-1.3) Lymphocytes % 21.9 L (24.0-44.0) % Monocytes % 5.4 (0.0-12.0) % Eosinophils % 0.2 (0.00-5.0) % Basophils % 0.2 (0.0-0.4) % Absolute Granulocytes 8.28 H (1.4-6.9) Basophils # 0.02 (0-0.4) Sodium (137-145) mmol/L Potassium (3.5-5.1) mmol/L Chloride (98-107) mmol/L Carbon Dioxide (22-30) mmol/L Anion Gap (5-15) MEQ/L BUN (7-17) mg/dL Creatinine (0.52-1.04) mg/dL Estimated GFR ML/MIN Glucose (74-106) mg/dL Calcium (8.4-10.2) mg/dL Magnesium (1.6-2.3) mg/dL Total Bilirubin (0.2-1.3) mg/dL AST (14-36) U/L ALT (0-35) U/L Alkaline Phosphatase (38-126) U/L Serum Total Protein (6.3-8.2) g/dL Albumin (3.5-5.0) g/dL Amylase (30-110) U/L Lipase (23-300) U/L Urine Color (YELLOW) Urine Appearance (CLEAR) Urine pH (5-6) Ur Specific [place] (1.005-1.025) Urine Protein (Negative) Urine Ketones (NEGATIVE) Urine Blood (0-5) Lexa/ul Urine Nitrite (NEGATIVE) Urine Bilirubin (NEGATIVE) Urine Urobilinogen (0-1) mg/dL Ur Leukocyte Esterase (NEGATIVE) Urine WBC (Auto) (0-5) /HPF Urine RBC (Auto) (0-2) /HPF U Epithel Cells (Auto) (FEW) /HPF Urine Bacteria (Auto) (NEGATIVE) /HPF Urine Mucus (Auto) (NEGATIVE) /HPF Urine Culture Reflexed (NO) Urine Glucose (NEGATIVE) mg/dL Urine Opiates Level (NEGATIVE) Ur Methadone (NEGATIVE) Urine Barbiturates (NEGATIVE) Ur Phencyclidine (PCP) (NEGATIVE) Urine Amphetamine (NEGATIVE) U Benzodiazepine Level (NEGATIVE) Urine Cocaine (NEGATIVE) Urine Marijuana (THC) (NEGATIVE) Ethyl Alcohol (0-10) mg/dL - Progress Progress: improved Counseled pt/family regarding: lab results, diagnosis, need for follow-up - Departure Departure Disposition: Home Clinical Impression: UTI (urinary tract infection), Alcohol abuse Condition: Stable Critical Care Time: No Referrals: DOCTOR,NO FAMILY [Primary Care Provider] - Additional Instructions: drink plenty of fluids(nonalcoholic). follow up with primary doctor for further management of your alcoholic issue and other medical issues. Prescriptions: Promethazine HCl 25 mg [Phenergan 25 mg] 25 mg PO Q8H PRN PRN #6 tablet PRN Reason: Nausea/Vomiting Ciprofloxacin [Cipro 500 MG] 500 mg PO BID #14 tablet
[2018-08-19] MEDS ORDERED: Zofran 4 MG/2 ML VIAL ONE (08:44)
[2018-08-19] MEDS ORDERED: Sodium Chloride 0.9% 1000 ML 1,000 ML ONE ×2 (08:44→09:44)
[2018-08-19] MEDS ORDERED: Phenergan 25 MG INJ IM ONE (08:45)
[2018-08-19] MEDS ORDERED: Phenergan 25 MG INJ ONE (08:47)
[2018-08-19 09:07] LABS: BASOPHIL % 0.2 % (0.0-0.4); Basophil (Absolute #) 0.02 (0-0.4); Eosinophil % 0.2 % (0.00-5.0); Eosinophil (Absolute #) 0.02 (0-0.5); Granulocyte Absolute (ANC) 8.28 (1.4-6.9); Granulocytes % 72.3 % (36.0-66.0); Hematocrit 40.2 % (35-47); Hemoglobin 13.8 gm/dl (12.0-16.0); Lymphocyte (Absolute #) 2.51 (1.0-4.6); Lymphocytes % 21.9 % (24.0-44.0); Mean Cell Volume 89.3 fl (78-100); Mean Corpuscular Hemoglobin 30.7 pg (26-32); Mean Corpuscular Hgb Concent. 34.3 g/dl (32-36); Mean Platelet Volume 9.5 fl (6-9.5); Monocyte (Absolute #) 0.62 (0.0-1.3); Monocytes % 5.4 % (0.0-12.0); Platelet Count 269 K/mm3 (150-450); Red Cell Distribution Width 14.5 % (11.5-14.0); White Blood Count 11.5 K/mm3 (4.0-10.5)
[2018-08-19 09:11] LABS: Appearance CLOUDY (CLEAR); Bacteria FEW /HPF (NEGATIVE); Bilirubin NEGATIVE (NEGATIVE); Blood LARGE Ery/ul (0-5); Epithelial Cells RARE /HPF (FEW); Glucose NEGATIVE (NEGATIVE); Ketones TRACE (NEGATIVE); Leukocyte Esterase MODERATE (NEGATIVE); Mucus SLIGHT /HPF (NEGATIVE); Nitrite NEGATIVE (NEGATIVE); Protein,Urine Dip 100 (Negative); Specific Gravity 1.028 (1.005-1.025); Urobilinogen 4 mg/dL (0-1); WBC 26-50 /HPF (0-5)
[2018-08-19 09:13] LABS: RBC >101 /HPF (0-2)
[2018-08-19] MEDS ORDERED: ROCEPHIN 1 Gm-D5w 50 ml Bag** 1 G/50 ML IVPB IV STA (09:18)
[2018-08-19 09:21] LABS: ALBUMIN 4.9 g/dL (3.5-5.0); ALKALINE PHOSPHATASE 85 U/L (38-126); AMYLASE 108 U/L (30-110); BLOOD UREA NITROGEN 8 mg/dL (7-17); CHLORIDE 101 mmol/L (98-107); Calcium 9.8 mg/dL (8.4-10.2); Carbon Dioxide 19 mmol/L (22-30); Creatinine 1 0.68 mg/dL (0.52-1.04); ETHYL ALCOHOL 38 mg/dL (0-10); Glucose 88 mg/dL (74-106); LIPASE 55 U/L (23-300); MAGNESIUM 1.8 mg/dL (1.6-2.3); Potassium 3.5 mmol/L (3.5-5.1); SGOT/AST 57 U/L (14-36); SGPT/ALT 35 U/L (0-35); SODIUM 139 mmol/L (137-145); Total Protein 8.5 g/dL (6.3-8.2)
[2018-08-19 09:30] LABS: Amphetamine,Urine NEGATIVE (NEGATIVE); Barbiturate,Urine NEGATIVE (NEGATIVE); Benzodiazepine,Urine POSITIVE (NEGATIVE); Cocaine,Urine NEGATIVE (NEGATIVE); Methadone,Urine NEGATIVE (NEGATIVE); Opiate,Urine NEGATIVE (NEGATIVE); PCP,Urine NEGATIVE (NEGATIVE); THC,Urine POSITIVE (NEGATIVE)
[2018-08-19] MEDS ORDERED: ROCEPHIN 1 Gm-D5w 50 ml Bag** 1 G/50 ML IVPB IV ONE (09:44)
[2018-08-19 10:43] VITALS: BP 108/51; PULSE 105; O2SAT 100
== END 2018-08-19 10:57 | disposition home or self-care (01) ==
LOC: ED 08:23
DX: N39.0 Urinary tract infection, site not specified (principal); F10.10 Alcohol abuse, uncomplicated
CPT/HCPCS: 36000; 36415; 80053; 80307; 81001; 82150; 83690; 83735; 85025; 87086; 96360; 96361; 96365; 96372; 96374; 99284; J0696; J2405; J2550; G0480